=== PATIENT | female | born 1990 | race Caucasian/White ===

== ENCOUNTER 2019-12-28 14:46 | Emergency (ER) | payer OTHER, SELFPAY ==
--- NOTE | ~2019-12-28 | XR_ITS ---
EXAMINATION: XR foot RT min 3V EXAM DATE: 12/28/2019 15:22 INDICATION: Initial encounter following injury, with pain of the right second and third toes. TECHNIQUE: Right foot dorsoplantar, lateral and oblique projections obtained and reviewed. There is no prior study for comparison. FINDINGS: Right metatarsal bones unremarkable. There are no acute fractures or dislocations identifi ed. There is no subcutaneous gas. The soft tissue is unremarkable. There are no radiopaque foreig n bodies. IMPRESSION: No acute osseous findings. Reviewed, dictated and finalized at location A. SOFTWARE ARCHITECT IMPRESSION: No acute osseous findings.
--- NOTE | 2019-12-28 14:48 | ED.GENADULT ---
HPI - General Adult General Chief complaint: Extremity Injury, Lower Stated complaint: Toe Pain Time Seen by Provider: 12/28/19 15:05 Source: patient Mode of arrival: ambulatory Limitations: no limitations History of Present Illness HPI narrative: 29-year-old female patient presents to the [facility] with complaints of toe pain. Patient states that she was standing on top of her 4 saldana today trying to get something off of the top shelf in her garage and she fell off a 4 [place]dana. Patient states she got her second and third toe caught on 1 of the pedals on the 4 saldana. Patient states since then she has been having pain. Patient states she did take some ibuprofen for pain prior to arrival. Patient states she does not have any pain to the foot. Patient denies any pain to the great toe just the second and third toe on the right foot. Patient states she has been able to walk on it. Related Data Home Medications Medication Instructions Recorded Confirmed albuterol sulfate 2 puff INHALATION Q4-6H PRN 12/28/19 12/28/19 Allergies Allergy/AdvReac Type Severity Reaction Status Date / Time bee venom protein (honey bee) Allergy Anaphylactic Verified 12/28/19 15:06 [bees] Shock topiramate [From Topamax] Allergy Numbness Verified 12/28/19 15:05 Review of Systems Review of Systems: Narrative: CONSTITUTIONAL: Denies fever, chills, or sweats. EYES: Denies visual changes, redness, or discharge. ENT: Denies rhinorrhea, congestion, sore throat, or otalgia. CARDIOVASCULAR: Denies chest pain, palpitations, or edema. RESPIRATORY: Denies cough or dyspnea. GASTROINTESTINAL: Denies abdominal pain, nausea, vomiting, or diarrhea. GENITOURINARY: Denies dysuria or hematuria. SKIN: Denies rash or itching. MUSCULOSKELETAL: Denies back pain, joint pain, or myalgia. Positive pain to second and third toe on right foot NEUROLOGIC: Denies headache, numbness, or weakness. PSYCHIATRIC: Denies anxiety or depression. [facility] Social History Social History Gender identity (if verbalized by the patient): Female Comments At the time of my signature I agree with nursing past medical history, surgical, social, and family history. There is no relevant family history pertinent to the presenting complaint. Exam Narrative: Exam Narrative: GENERAL: Well-appearing, well-nourished, and in no acute distress. HEAD: Normocephalic, atraumatic. EYES: PERRLA and EOMI. ENT: Nares clear, no rhinorrhea or epistaxis. Mucous membranes moist. NECK: Supple. No lymphadenopathy CHEST: Clear to auscultation. No respiratory distress. HEART: Regular rate and rhythm. No murmur heard. Normal peripheral pulses. ABDOMEN: Soft, nontender, nondistended, normal active bowel sounds. EXTREMITIES: Patient able to bear weight and ambulate with increase in pain to second and third toe on right foot. No surface trauma, ecchymosis, erythema, lesions, ulcers or break in skin integrity. The R foot is without obvious asymmetry or deformity when compared to the L foot. No bony step-off, tender to palpation over the second and third toe on the right foot, no midfoot or hindfoot or sole. Normal plantar/dorsiflexion, inversion/eversion. Distal motor and neurovascular status are intact SKIN: Warm, dry, no rash. NEURO: No focal deficits. Alert and oriented x3. Course Reevaluation(s) Reevaluation #1: Notify patient that there is no acute fracture noted to the toes at this time. Discussed with her that this is most likely a contusion from when she fell today. Discussed with patient she can continue taking Tylenol and ibuprofen for pain, elevating it and icing it to help with the swelling. Discussed with patient that this should get better with time. Patient verbalized understanding denies any other questions or concerns. Date: 12/28/19 Time: 15:44 Vital Signs Vital signs: Vital Signs Temperature 37.7 C H 12/28/19 15:01 Pulse Rate 92 03
[2019-12-28 15:01] VITALS: BP 105/63; PULSE 92; RESP 16; TEMP 37.7; O2SAT 100
== END 2019-12-28 15:47 | disposition home or self-care (01) ==
PROVIDERS: Emergency Provider Nurse Practitioner Family
DX: S90.121A Contusion of right lesser toe(s) without damage to nail, initial encounter (principal); W17.89XA Other fall from one level to another, initial encounter
CPT/HCPCS: 73630; 99213; G0463

== ENCOUNTER 2020-07-15 01:02 | Outpatient (CLI) | payer OTHER, SELFPAY ==
[2020-07-15 18:37] LABS: SARS-CoV-2 RNA PCR Negative
== END 2020-07-15 01:03 | disposition home or self-care (01) ==
LOC: ANHCOVIDDT 01:02
PROVIDERS: PCP Physician Assistant; Visit Provider Otolaryngology
DX: Z01.818 Encounter for other preprocedural examination (principal); Z20.828 Contact with and (suspected) exposure to other viral communicable diseases
CPT/HCPCS: 87635; C9803; U0003

== ENCOUNTER 2020-07-18 01:15 | Day surgery (SDC) | payer OTHER, SELFPAY ==
[2020-07-06 12:02] VITALS: BMI 22.5
--- NOTE | 2020-07-13 06:31 | P.HP_ITS ---
History of Present Illness History of Present Illness Consent: Risks, benefits, and alternatives have been discussed and questions answered. Patient agrees to proceed with procedure. Chief complaint: Chronic otitis media Narrative: Kim Singh Parent is a 29 year old female with multiple ear operations in the past bilateral chronic otitis media she is admitted now for left exploratory tympanotomy Review of Systems Review of Systems: All systems reviewed & are unremarkable except as noted in HPI and below [facility] Social History Social History Smoking packs per day: 0.5 Smoking cigarettes per day: 10.0 Years smoked: 13 Smoking pack-years: 6.50 Smoking status: Current every day smoker Tobacco type: cigarettes Alcohol intake: current Drinks per week: 2 Substance use: former Substance use type: marijuana Last use: 10 YEARS AGO Gender identity (if verbalized by the patient): Female Spiritual care concerns: No Meds Home Medications and Allergies Home Medications Medication Instructions Recorded Confirmed Type meclizine 25 mg tablet 25 mg PO TID #30 tablet 04/18/20 07/06/20 Rx Truvy 2 tablet PO TID 07/06/20 History loratadine 10 mg PO DAILY 07/06/20 07/06/20 History Allergies Allergy/AdvReac Type Severity Reaction Status Date / Time bee venom protein (honey bee) Allergy Anaphylactic Verified 07/06/20 12:03 [bees] Shock topiramate [From Topamax] Allergy Numbness Verified 07/06/20 12:03 Assessment and Plan Additional Plan Admitted for an exploratory tympanotomy left and cleaning out of the mastoid
[2020-07-18] VITALS (7 sets, daily range): BP systolic 94–116; BP diastolic 58–76; PULSE 57–87; RESP 9–16; TEMP 36.2–36.8; O2SAT 96–100
--- NOTE | 2020-07-18 06:14 | WPDHPUPDATE1 ---
History and Physical Update Update Date/Time: 07/18/20 06:14 History and Physical has been reviewed, including an updated exam of the patient. There are NO changes in the patient's condition. Risks, benefits, and alternatives have been discussed and questions answered. Patient agrees to proceed with procedure.
[2020-07-18] MEDS: ACETAMINOPHEN 500 MG TABLET 1000 MG PO (08:19)
[2020-07-18] MEDS: LACTATED RINGERS 1,000 ML 30 ML IV CONT (08:32)
--- NOTE | 2020-07-18 08:36 | WPDANESEPPF ---
Anes - Initial Pre Proc Eval Procedure: Operation Date: 07/18/20 09:30 Proposed Procedures p Left Exploratory Tympanotomy - Travis Power MD Date/Time: 07/18/20 08:36 Surgeon: Travis Power MD Pre Op Diagnosis: Chronic otitis media Patient Data Age: 29 Gender: F Height: 5 ft 7 in Weight: 66.3 kg Last Vital Signs Temp 36.8 C 07/18/20 08:11 Pulse 87 07/18/20 08:11 Resp 16 07/18/20 08:11 BP 116/76 07/18/20 08:11 Pulse Ox 96 07/18/20 08:11 Allergies Allergy/AdvReac Type Severity Reaction Status Date / Time bee venom protein (honey bee) Allergy Anaphylactic Verified 07/18/20 08:01 [bees] Shock topiramate [From Topamax] Allergy Numbness Verified 07/18/20 08:01 Home Medications Medication Instructions Recorded Confirmed Type meclizine 25 mg tablet 25 mg PO TID #30 tablet 04/18/20 07/18/20 Rx Truvy 2 tablet PO TID 07/06/20 History loratadine 10 mg PO DAILY 07/06/20 07/18/20 History Patient hx anesthesia problems: none Family hx anesthesia problems: none PMFSH Past Medical History Medical History Anxiety Tobacco abuse Social History Social History Smoking packs per day: 0.5 Smoking cigarettes per day: 10.0 Years smoked: 13 Smoking pack-years: 6.50 Smoking status: Current every day smoker Tobacco type: cigarettes Alcohol intake: current Drinks per week: 2 Substance use: former Substance use type: marijuana Last use: 10 YEARS AGO Gender identity (if verbalized by the patient): Female Spiritual care concerns: No Anes - Eval Final PreProcedure Day of Procedure 07/18/20 08:36 Patient weight: normal Heart: regular rate and rhythm Lungs: clear to auscultation Airway: Mallampati scale class II and special considerations (right incisor veneer) Neurological: alert and oriented Last oral intake: >/= 8 hours ASA classification: II Emergent: no Anesthetic plan: proceed Anesthesia type and monitoring: general LMA and standard monitoring Informed Consent: The patient's anesthetic plan and its attendant risks and benefits were discussed with the patient/family/POA. Questions were solicited and answers provided to the satisfaction of the patient/family/POA.
[2020-07-18] MEDS: NEOMYCIN/POLYMYXIN/BACITRACIN OINTMENT 15 GM TUBE 1 APPLIC TOPICAL (09:25)
[2020-07-18] MEDS: CIPROFLOXACIN HCL 0.3% OP SOLN 2.5 ML BTL 4 DROP LEFT EAR (09:25)
--- NOTE | 2020-07-18 09:38 | PM.PROC ---
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
[2020-07-18] MEDS: fentaNYL CITRATE INJ (*CRX) 100 MCG/2 ML VIAL 25 MCG IV PUSH ×2 (09:55→10:05)
[2020-07-18] MEDS: oxyCODONE HCL (*CRX) 5 MG TAB IR PO (10:50)
== END 2020-07-18 11:31 | disposition home or self-care (01) ==
PROVIDERS: PCP Physician Assistant; Visit Provider Otolaryngology
PROC: (CPT 69436; principal; 2020-07-18 09:30)
DX: H66.93 Otitis media, unspecified, bilateral (principal); H71.12 Cholesteatoma of tympanum, left ear; H71.22 Cholesteatoma of mastoid, left ear; F17.210 Nicotine dependence, cigarettes, uncomplicated
CPT/HCPCS: 69436; A9270; J0171; J1100; J2250; J2405; J2704; J3010; J7120

== ENCOUNTER 2021-01-14 08:45 | Emergency (ER) | payer OTHER, SELFPAY ==
--- NOTE | 2021-01-14 08:58 | ED.URI ---
HPI - URI/Sore Throat General Chief Complaint: Upper Respiratory Infection Stated Complaint: Congestion,cough Time Seen by Provider: 01/14/21 08:58 Source: patient and RN notes reviewed Mode of arrival: ambulatory Limitations: no limitations History of Present Illness HPI Narrative: 30-year-old female presents to the [facility] with complaints of sinus pain, pressure, bilateral ear pain. Patient has a history of ear surgery and frequent ear infections and ear canal infections. Hoarse voice with a cough. Denies fevers, chest pain, abdominal pain. No nausea vomiting or diarrhea. Related Data Home Medications Medication Instructions Recorded Confirmed albuterol sulfate 2 inh INHALATION DAILY 01/14/21 01/14/21 levonorgestrel [Mirena] 1 device INTRAUTERINE ONCE 01/14/21 01/14/21 Allergies Allergy/AdvReac Type Severity Reaction Status Date / Time fluticasone Allergy Unknown RASH Verified 01/14/21 08:50 topiramate Allergy Unknown numbness Verified 01/14/21 08:50 of face and hands Bumble Bee Allergy Mild SHOCK Uncoded 01/14/21 08:50 Review of Systems Review of Systems: Narrative: CONSTITUTIONAL: Denies fever, chills, or sweats. EYES: Denies visual changes, redness, or discharge. ENT: Reports rhinorrhea, congestion, sore throat, or otalgia. CARDIOVASCULAR: Denies chest pain, palpitations, or edema. RESPIRATORY: Reports cough without dyspnea. GASTROINTESTINAL: Denies abdominal pain, nausea, vomiting, or diarrhea. SKIN: Denies rash or itching. MUSCULOSKELETAL: Denies back pain, joint pain, or myalgia. NEUROLOGIC: Denies headache, numbness, or weakness. PSYCHIATRIC: Denies anxiety or depression. All other systems reviewed are negative, except as documented in HPI. PMFSH Surgical History Surgical History (Updated 01/14/21 @ 16:06 by Sheila Lowe) History of tympanoplasty Comments History of ear infections and ear surgery. At the time of my signature, I reviewed and agree with the nursing past medical, surgical, social, and family history. There is no relevant family history pertinent to the patient complaint. Exam Narrative: Exam Narrative: GENERAL: This is a well-nourished, well-developed patient, in no apparent distress. HEAD: normocephalic, atraumatic. EYES: PERRL. Sclera clear/white. Vision is grossly intact. EARS: External ears normal. auditory canals with cerumen bilaterally, worse on the left than the right. TMs normal without perforation. Hearing grossly intact. NOSE: External nose normal with with nasal discharge, nares with redness. THROAT: Mucous membranes moist, posterior pharynx clear. NECK: Neck supple, non-tender without lymphadenopathy, masses or thyromegaly. CARDIOVASCULAR: Regular rate and rhythm without murmurs, gallops, or rubs. RESPIRATORY: Clear to auscultation. Breath sounds equal bilaterally. No wheezes, rales, or rhonchi. SKIN: warm, intact with no suspicious lesions or rash, good texture and turgor. NEURO: awake, alert, and oriented to person, place and time. There were no obvious focal neurologic abnormalities. EXTREMITIES: No joint tenderness, effusion, or edema noted. BACK: Nontender without deformity. Course Vital Signs Vital signs: Vital Signs Temperature 97.1 F L 01/14/21 09:01 Pulse Rate 87 01/14/21 09:01 Respiratory Rate 16 01/14/21 09:01 Blood Pressure 108/76 01/14/21 09:01 Pulse Oximetry 100 01/14/21 09:01 Temperature 97.1 F L 01/14/21 09:01 Pulse Rate 87 01/14/21 09:01 Respiratory Rate 16 01/14/21 09:01 Blood Pressure 108/76 01/14/21 09:01 Pulse Oximetry 100 01/14/21 09:01 Reviewed, within normal limits Procedures Ear Wax Removal Both Ears: Ear Wax Removal Date: 01/14/21 Ear Wax Removal Time: 09:15 Results: Re-examined: some cerumen remains TM Examination: TM(s) intact, normal appearance Ear Canal Exam: atraumatic Patient Tolerated Procedure: well Complications: no problems
[2021-01-14 09:01] VITALS: BP 108/76; PULSE 87; RESP 16; TEMP 36.2; O2SAT 100
== END 2021-01-14 09:36 | disposition home or self-care (01) ==
PROVIDERS: Emergency Provider Nurse Practitioner
DX: H60.502 Unspecified acute noninfective otitis externa, left ear (principal); J01.40 Acute pansinusitis, unspecified; H61.23 Impacted cerumen, bilateral; Z20.822 Contact with and (suspected) exposure to COVID-19
CPT/HCPCS: 69210; 87426; 99213; C9803; G0463

== ENCOUNTER 2021-06-06 09:48 | Emergency (ER) | payer OTHER, SELFPAY ==
[2021-06-06 09:59] VITALS: BP 124/89; PULSE 100; RESP 16; TEMP 37.1; O2SAT 99
--- NOTE | 2021-06-06 10:23 | ED.URI ---
HPI - URI/Sore Throat General Chief Complaint: Upper Respiratory Infection Stated Complaint: headache/sob/cough Time Seen by Provider: 06/06/21 10:10 Source: patient and RN notes reviewed Mode of arrival: ambulatory Limitations: no limitations History of Present Illness HPI Narrative: 30-year-old female with history of asthma presents with concern for headache, sore throat, fatigue, ear pain. Reports occasional shortness of breath that she believes is related to her asthma. She denies any current shortness of breath. She has not taken any [id number] remedies. She reports her is sick with similar symptoms. Reports she was vaccinated for Covid in January. MD elicited complaint: nasal congestion Related Data Home Medications Medication Instructions Recorded Confirmed albuterol sulfate 90 mcg INHALATION PRN PRN 06/06/21 06/06/21 Allergies Allergy/AdvReac Type Severity Reaction Status Date / Time bee venom protein (honey bee) Allergy Anaphylactic Verified 06/06/21 10:13 [bees] Shock topiramate [From Topamax] Allergy Numbness Verified 06/06/21 10:13 Review of Systems Review of Systems: CONSTITUTIONAL: Denies malaise, chills, sweats, or fever. EYES: Denies visual changes, redness, or discharge. ENT: Reports rhinorrhea, congestion, otalgia and sore throat. CARDIOVASCULAR: Denies chest pain, palpitations, or edema. RESPIRATORY: Reports cough. Denies current dyspnea. GASTROINTESTINAL: Denies abdominal pain, nausea, vomiting, diarrhea SKIN: Denies rash or itching. MUSCULOSKELETAL: Denies myalgia. NEUROLOGIC: Reports headache. All systems reviewed & are unremarkable except as noted in HPI and below PMFSH Past Medical History Medical History (Updated 06/06/21 @ 10:28 by Sheila Brooks NP) Anxiety Tobacco abuse Social History Social History Smoking packs per day: 0.5 Smoking cigarettes per day: 10.0 Years smoked: 13 Smoking pack-years: 6.50 Smoking status: Current every day smoker Tobacco type: cigarettes Alcohol intake: current Drinks per week: 2 Substance use: former Substance use type: marijuana Last use: 10 YEARS AGO Gender identity (if verbalized by the patient): Female Spiritual care concerns: No Comments At time of signature, agree with nursing past medical, surgical, social and family history. There is no relevant family history pertinent to the presenting complaint Exam Narrative: GENERAL: Well-appearing, well-nourished, and in no acute distress. HEAD: Normocephalic EYES: PERRLA, conjunctivae clear ENT: Nares clear, clear discharge. Mucous membranes moist. TM pearly fajardo with sharp light reflex bilaterally; no tragal tenderness. Oropharynx erythematous without lesions. Tonsils enlarged and without exudate, no drooling, no hoarseness, no trismus, uvula midline. NECK: Supple. No lymphadenopathy CHEST: Clear to auscultation, breath sounds equal. No wheezing, rhonchi, rales, or stridor. No respiratory distress, speaks in full sentences. HEART: Regular rate and rhythm. No murmur heard. SKIN: Warm, dry, no rash. NEURO: Alert and oriented x3. PSYCH: Normal mood and affect Course Course Emergency Course: Patient is aware of diagnosis, understands and agrees to treatment plan. Anticipatory guidance given. Patient agrees to follow-up as directed and is aware of reasons to seek care at the emergency department. Portions of this record may have been created with voice recognition software Vital Signs Vital signs: Vital Signs Temperature 98.7 F 06/06/21 09:59 Pulse Rate 100 06/06/21 09:59 Respiratory Rate 16 06/06/21 09:59 Blood Pressure 124/89 06/06/21 09:59 Pulse Oximetry 99 06/06/21 09:59 Temperature 98.7 F 06/06/21 09:59 Pulse Rate 100 06/06/21 09:59 Respiratory Rate 16 06/06/21 09:59 Blood Pressure 124/89 06/06/21 09:59 Pulse Oximetry 99 06/06/21 09:59 Reviewed.
== END 2021-06-06 10:40 | disposition home or self-care (01) ==
PROVIDERS: Emergency Provider Nurse Practitioner; PCP Physician Assistant
DX: U07.1 COVID-19 (principal); F17.210 Nicotine dependence, cigarettes, uncomplicated
CPT/HCPCS: 87426; 99213; C9803; G0463

== ENCOUNTER 2021-07-09 10:18 | Outpatient (CLI) | payer OTHER, SELFPAY | END 2021-07-09 10:19 | disposition home or self-care (01) | LOC: ANHAUDASC 10:19 | PROVIDERS: PCP Physician Assistant; Visit Provider Otolaryngology | DX: H66.93 Otitis media, unspecified, bilateral (principal) | CPT/HCPCS: 92557; 92567 ==

== ENCOUNTER 2021-07-26 08:03 | Outpatient (RCR) | payer OTHER, SELFPAY | END 2021-10-24 23:59 | disposition home or self-care (01) | LOC: ANHAUDASC 08:03 | PROVIDERS: PCP Physician Assistant; Visit Provider Otolaryngology | DX: Z46.1 Encounter for fitting and adjustment of hearing aid (principal) | CPT/HCPCS: V5160; V5261; V5264 ==

== ENCOUNTER 2021-10-31 14:02 | Emergency (ER) | payer OTHER, SELFPAY ==
--- NOTE | ~2021-10-31 | XR_ITS ---
EXAMINATION: [id number]_[id number] EXAM DATE: 10/31/2021 20:45 INDICATION: Initial encounter following injury, with pain of the neck. TECHNIQUE: Cervical spine frontal, lateral, lateral swimmers, and open-mouth odontoid projections. There is no prior study for comparison. FINDINGS: There is moderate reversal of the normal cervical lordosis which may be positional or spasm . Mild disc disease at C4-5. Mild cervical arthropathy. The odontoid process is intact. The lateral masses of C1 line up with C2. There are no acute fractures or dislocations identified. The vertebr al bodies are aligned in the AP dimension. IMPRESSION: Reversal of normal cervical lordosis could indicate spasm. No fracture. Reviewed, dictated and finalized at location A. CLING CENTER OPERATOR IMPRESSION: Reversal of normal cervical lordosis could indicate spasm. No fract ure.
--- NOTE | ~2021-10-31 | XR_ITS ---
EXAMINATION: XR elbow RT min 3V EXAM DATE: 10/31/2021 20:45 INDICATION: Fall,Rt Medial Elbow Pain initial encounter. TECHNIQUE: Right elbow frontal, lateral with flexion, and oblique projections obtained and reviewed. There is no prior study for comparison. FINDINGS: Right elbow anterior humeral line intact. There are no acute fractures or dislocations roxana ntified. There is no subcutaneous gas. The soft tissue is unremarkable. There are no radiopaque f oreign bodies. IMPRESSION: 1. XR elbow RT min 3V exam without acute osseous findings. Reviewed, dictated and finalized at location A. STED LIVING DIRECTOR
--- NOTE | ~2021-10-31 | XR_ITS ---
EXAMINATION: XR lumbar spine 2-3V EXAM DATE: 10/31/2021 20:45 INDICATION: Fall,Rt Sided Lumbar Pain To Tailbone . Initial encounter. TECHNIQUE: Lumber spine frontal, lateral, lateral L5-S1 projections for interpretation. There is no prior study for comparison. FINDINGS: The vertebral bodies are aligned in the AP dimension. Neck maintained There are no acute fractures identified. Mild lumbar facet arthropathy. Sacrum, sacroiliac joints, sacral arcuate lines are intact. There is IUD projecting over the central aspect of the pelvis. IMPRESSION: Mild lumbar facet arthropathy. Reviewed, dictated and finalized at location A. ATION THERAPIST
[2021-10-31 14:09] VITALS: BP 116/74; PULSE 92; RESP 16; TEMP 36.4; O2SAT 100
[2021-10-31 19:19] VITALS: BP 110/73; PULSE 73; TEMP 36.7; O2SAT 100
--- NOTE | 2021-10-31 19:32 | PC.NURSE ---
Call to waiting room, no answer.
--- NOTE | 2021-10-31 19:53 | PC.NURSE ---
Call to patient in waiting room, no answer. Assume pt left after triage, prior to seeing provider.
--- NOTE | 2021-10-31 19:58 | PC.NURSE ---
Per sheet rock finisher, pt did not hear her name called. Pt to ED Rm 17 ambulatory.
--- NOTE | 2021-10-31 21:09 | ED.FALL ---
HPI - Fall General Chief Complaint: Fall Stated Complaint: FALL DOWN STEPS, ARM BACK PAIN Time Seen by Provider: 10/31/21 20:12 Source: patient Mode of arrival: ambulatory Limitations: no limitations History of Present Illness HPI Narrative: 31-year-old with no major medical problems here with complaints of neck, low back pain and right elbow pain. Patient [place] which were slippery from ice, she denies any loss of consciousness. She denies any other injuries. Related Data Home Medications Medication Instructions Recorded Confirmed levonorgestrel [Mirena] 1 device INTRAUTERINE ONCE 01/14/21 10/29/21 albuterol sulfate 90 mcg INHALATION PRN PRN 06/06/21 10/29/21 Allergies Allergy/AdvReac Type Severity Reaction Status Date / Time fluticasone Allergy Unknown RASH Verified 10/31/21 20:02 bee venom protein (honey bee) Allergy Anaphylactic Verified 10/31/21 20:02 [bees] Shock topiramate [From Topamax] Allergy Numbness Verified 10/31/21 20:02 Bumble Bee Allergy Mild SHOCK Uncoded 10/31/21 20:02 Review of Systems Review of Systems: All systems reviewed & are unremarkable except as noted in HPI and below Constitutional: Constitutional: Reports no additional constitutional complaints Eyes: Eyes: Reports no additional eye complaints ENT: Reports system reviewed and no additional complaints, except as documented Cardiovascular: Cardiovascular: Reports no additional cardiovascular complaints Respiratory: Respiratory: Reports no additional respiratory complaints Gastrointestinal: Gastrointestinal: Reports no additional gastrointestinal complaints Musculoskeletal: Musculoskeletal: Reports as per HPI Integumentary/Breasts: Skin/Breast: Reports system reviewed and no additional complaints, except as docu Neurologic: Reports system reviewed and no additional complaints, except as documented Psychiatric: Psychiatric: Reports no additional psychiatric complaints Endocrine: Endocrine: Reports no additional endocrine complaints [facility] Past Medical History Medical History (Updated 10/31/21 @ 21:14 by Iraj Harley MD) Anxiety Tobacco abuse Surgical History Surgical History History of tympanoplasty Social History Social History Smoking packs per day: 0.5 Smoking cigarettes per day: 10.0 Years smoked: 13 Smoking pack-years: 6.50 Smoking status: Current every day smoker Tobacco type: cigarettes Alcohol intake: current Drinks per week: 2 Substance use: former Substance use type: marijuana Last use: 10 YEARS AGO Gender identity (if verbalized by the patient): Female Spiritual care concerns: No Exam Narrative: GENERAL: Well-appearing, well-nourished, and in no acute distress. HEAD: Normocephalic, atraumatic. EYES: PERRLA and EOMI. ENT: Nares clear, no rhinorrhea or epistaxis. Mucous membranes moist. NECK: Supple. No C-spine tenderness CHEST: Clear to auscultation. No respiratory distress. HEART: Regular rate and rhythm. No murmur heard. Normal peripheral pulses. EXTREMITIES: Normal range of motion. No edema. Right elbow no deformity painful range of motion Examination of her back no vertebral point tenderness. SKIN: Warm, dry, no rash. NEURO: No focal deficits. Alert and oriented x3. PSYCH: Normal mood and affect. Course Course Emergency Course: Inform patient about her x-ray findings. Advised her to take pain medication as prescribed. Vital Signs Vital signs: Vital Signs Temperature 36.4 C L 10/31/21 14:09 Pulse Rate 92 10/31/21 14:09 Respiratory Rate 16 10/31/21 14:09 Blood Pressure 116/74 10/31/21 14:09 Pulse Oximetry 100 10/31/21 14:09 Temperature 36.7 C 10/31/21 19:19 Pulse Rate 73 10/31/21 19:19 Respiratory Rate 16 10/31/21 14:09 Blood Pressure 110/73 10/31/21 19:19 Pulse Oximetry 100
[2021-10-31] MEDS: NAPROXEN 500 MG TABLET (21:30)
== END 2021-10-31 21:31 | disposition home or self-care (01) ==
PROVIDERS: Emergency Provider Family Medicine; PCP Physician Assistant
DX: M54.50 Low back pain, unspecified (principal); S16.1XXA Strain of muscle, fascia and tendon at neck level, initial encounter; F17.210 Nicotine dependence, cigarettes, uncomplicated; W10.9XXA Fall (on) (from) unspecified stairs and steps, initial encounter
CPT/HCPCS: 72040; 72100; 73080; 99284; A9270

== ENCOUNTER 2022-01-03 11:09 | Outpatient (RCR) | payer OTHER, SELFPAY | END 2022-04-03 23:59 | disposition home or self-care (01) | LOC: ANHAUDASC 11:09 | PROVIDERS: PCP Physician Assistant; Visit Provider Physician Assistant | DX: Z46.1 Encounter for fitting and adjustment of hearing aid (principal) | CPT/HCPCS: 99199 ==

== ENCOUNTER 2022-05-18 14:38 | Emergency (ER) | payer OTHER, SELFPAY ==
--- NOTE | 2022-05-18 14:42 | ED.SKABFB ---
HPI - Skin/Abscess/Foreign Bdy General Chief complaint: Skin/Abscess/Foreign Body Stated complaint: Insect Bite Time Seen by Provider: 05/18/22 14:42 Source: patient Mode of arrival: ambulatory Limitations: no limitations History of Present Illness HPI narrative: Ms. Coleman is a 31-year-old female patient presenting to the clinic today with complaints of an insect bite/sting to her left abdominal wall. She reports she was stung last night and has swelling and redness to the affected area. States that the area is itchy and also mildly tender to touch with some stinging. She denies any tongue swelling, shortness of breath, or drooling or difficulty swallowing Related Data Home Medications Medication Instructions Recorded Confirmed levonorgestrel 20 mcg/24 hours (7 1 device intrauterine ONCE 01/14/21 12/31/21 yrs) 52 mg intrauterine device (Mirena) albuterol sulfate 90 mcg/actuation 90 mcg inhalation PRN PRN 06/06/21 12/31/21 aerosol inhaler Shortness Of Breath Or Wheezing Allergies Allergy/AdvReac Type Severity Reaction Status Date / Time fluticasone Allergy Unknown RASH Verified 05/18/22 14:43 bee venom protein (honey bee) Allergy Anaphylactic Verified 05/18/22 14:43 [bees] Shock topiramate [From Topamax] Allergy Numbness Verified 05/18/22 14:43 Bumble Bee Allergy Mild SHOCK Uncoded 05/18/22 14:43 Review of Systems Review of Systems: Pertinent positives per HPI. Patient denies any fever, chills, rash, headache, visual changes, dizziness, cough, runny nose, sore throat, shortness of breath, chest pain, palpitations, nausea, vomiting, diarrhea, constipation, abdominal pain, or any urinary issues. [facility] Past Medical History Medical History Anxiety Tobacco abuse Surgical History Surgical History History of tympanoplasty Social History Social History Smoking packs per day: 0.5 Smoking cigarettes per day: 10.0 Years smoked: 13 Smoking pack-years: 6.50 Smoking status: Current some day smoker Tobacco type: cigarettes Alcohol intake: current Drinks per week: 2 Substance use: former Substance use type: marijuana Last use: 10 YEARS AGO Gender identity (if verbalized by the patient): Female Spiritual care concerns: No Comments At the time of my signature, I reviewed and agree with the nursing past medical, surgical, social, and family history. There is no relevant family history pertinent to the patient complaint. Exam Narrative: General: Well-developed, well nourished, in no apparent distress Head: Normocephalic, atraumatic. Cardio: Regular rate and rhythm, s1 and s2 normal, no murmur appreciated. Resp: Clear to auscultation bilaterally, no rhonchi, rales, wheezing or rubs. Integumentary: [place], warm, and dry, intact without lesion, has a insect sting to the left abdominal wall with palm-sized redness with mild induration. Tender to palpation. Course Course Emergency Course: Portions of this record may have been created with voice recognition software. Level of Care: Express Care Visit Vital Signs Vital signs: Vital signs reviewed MDM - Skin/Abscess/Foreign Bdy MDM Narrative Medical decision making narrative: At the time of visit patient is resting comfortably on the exam table. She reports that she has had anaphylactic reactions from bumblebee stings in the past. States that she thinks that this was some type of a wasp. The area is warm to touch and tender and itchy. I will give her a prescription for some oral prednisone as well as a prescription for some doxycycline to cover a secondary infection. Supportive measures were discussed with the patient she voiced understanding of discharge instructions Differential Diagnosis Differential diagnosis: Likely abscess of skin or subcu
[2022-05-18 14:46] VITALS: BP 119/76; PULSE 82; RESP 16; TEMP 36.3; O2SAT 100
== END 2022-05-18 14:57 | disposition home or self-care (01) ==
PROVIDERS: Emergency Provider Nurse Practitioner Family
DX: T63.481A Toxic effect of venom of other arthropod, accidental (unintentional), initial encounter (principal); F17.210 Nicotine dependence, cigarettes, uncomplicated
CPT/HCPCS: 99213; G0463

== ENCOUNTER 2022-07-08 11:46 | Outpatient (CLI) | payer OTHER, SELFPAY ==
--- NOTE | ~2022-07-08 | MMUS_ITS ---
EXAMINATION: MM diagnostic elvi BI w scottie, US breast BI complete HISTORY: Right breast lump TECHNIQUE: ML, MLO and CC 3-D tomosynthesis images of both breasts were performed and synthetic 2-D i mages were generated. CAD analysis was submitted and interpreted. High resolution bilateral complete breast ultrasound including all 4 quadrants and subareolar areas was performed. COMPARISON: None BREAST PARENCHYMAL COMPOSITION: The breasts are extremely dense, which lowers the sensitivity of mamm ography. FINDINGS: MAMMOGRAPHIC FINDINGS: No suspicious mass, architectural distortion, malignant calcification, skin thickening or retraction of either breast is evident. There is suggestion of a 10 mm circumscribed opacity subjacent to a marker where the patient complain s of the left breast lump, at the lower outer right breast. Additional similar masses may be present in each breast, partially obscured by the dense fibroglandular stroma. Bilateral complete breast ultr asound examination was therefore performed. Occasional bilateral punctate benign-appearing microcalcifications are noted. ULTRASOUND: Multiple bilateral breast cysts are noted, measuring up to 13.5 mm on the right, 12 mm on the left. No suspicious solid lesion or shadowing of either breast is detected. IMPRESSION: 1. Multiple bilateral breast cysts; no mammographic evidence of malignancy 2. Routine mammographic screening is recommended BI-RADS Category 2: Benign finding(s). Reviewed, dictated and finalized at location A. IMPRESSION: 1. Multiple bilateral breast cysts; no mammographic evidence of malignancy 2. Routine mammographic screening is recommended BI-RADS Category 2: Benign finding(s).
== END 2022-07-08 11:47 | disposition home or self-care (01) ==
DX: N60.11 Diffuse cystic mastopathy of right breast (principal); N60.12 Diffuse cystic mastopathy of left breast
CPT/HCPCS: 76641; 77062; 77066; 92557; 92567; G0279

== ENCOUNTER 2022-07-08 14:40 | Outpatient (CLI) | payer OTHER, SELFPAY | END 2022-07-08 14:41 | disposition home or self-care (01) | LOC: ANHAUDASC 14:41 | PROVIDERS: Visit Provider Otolaryngology | DX: H90.6 Mixed conductive and sensorineural hearing loss, bilateral (principal) | CPT/HCPCS: 92557; 92567 ==

== ENCOUNTER 2022-12-14 08:39 | Emergency (ER) | payer OTHER, SELFPAY ==
[2022-12-14 08:53] VITALS: BP 98/64; PULSE 84; RESP 14; TEMP 37.2; O2SAT 100
--- NOTE | 2022-12-14 09:17 | ED.GENADULT ---
HPI - General Adult General Chief complaint: Upper Respiratory Infection Stated complaint: Sore Throat/Sinus Time Seen by Provider: 12/14/22 09:17 Source: patient, RN notes reviewed and old records reviewed Mode of arrival: ambulatory Limitations: no limitations History of Present Illness HPI narrative: 32-year-old female presents to the [facility] with complaints of ear pain, sore throat, sinus congestion. Has a history of chronic ear infections, wears hearing aids [place] feverish last night, did not take her temperature. Patient reports that she is taking ?everything for her symptoms. Onset (ago): day(s) (4) Related Data Home Medications Medication Instructions Recorded Confirmed levonorgestrel 21 mcg/24 hours (8 1 device intrauterine ONCE 01/14/21 12/14/22 yrs) 52 mg intrauterine device (Mirena) Allergies Allergy/AdvReac Type Severity Reaction Status Date / Time fluticasone Allergy Unknown RASH Verified 12/14/22 09:02 bee venom protein (honey bee) Allergy Anaphylactic Verified 12/14/22 09:02 [bees] Shock topiramate [From Topamax] Allergy Numbness Verified 12/14/22 09:02 Bumble Bee Allergy Mild SHOCK Uncoded 12/14/22 09:02 Review of Systems Review of Systems: All systems reviewed & are unremarkable except as noted in HPI and below Constitutional: Constitutional: Reports no additional constitutional complaints Eyes: Eyes: Reports no additional eye complaints ENT: Reports as per HPI, Reports otalgia, Reports nasal congestion and Reports sore throat Cardiovascular: Cardiovascular: Reports no additional cardiovascular complaints, Denies chest pain and Denies dyspnea Respiratory: Respiratory: Reports no additional respiratory complaints, Denies chest congestion, Denies cough and Denies dyspnea Gastrointestinal: Gastrointestinal: Reports no additional gastrointestinal complaints, Denies abdominal pain, Denies nausea and Denies vomiting Musculoskeletal: Musculoskeletal: Reports no additional musculoskeletal complaints Integumentary/Breasts: Skin/Breast: Reports system reviewed and no additional complaints, except as docu Neurologic: Reports system reviewed and no additional complaints, except as documented Psychiatric: Psychiatric: Reports no additional psychiatric complaints Allergic/Immunologic: Allergic/Immunologic: Reports no additional allergic/immunologic complaints PMFSH Past Medical History Medical History (Updated 12/14/22 @ 09:41 by Sheila Lowe APRN) Anxiety Hearing aid worn Tobacco abuse Surgical History Surgical History History of tympanoplasty Social History Social History Smoking packs per day: 0.5 Smoking cigarettes per day: 10.0 Years smoked: 13 Smoking pack-years: 6.50 Smoking status: Current some day smoker Tobacco type: cigarettes Alcohol intake: current Drinks per week: 2 Substance use: former Substance use type: marijuana Last use: 10 YEARS AGO Gender identity (if verbalized by the patient): Female Spiritual care concerns: No Comments At the time of my signature, I reviewed and agree with the nursing past medical, surgical, social, and family history. There is no relevant family history pertinent to the patient complaint. Exam Const: General: cooperative, healthy appearing, comfortable, no acute distress, well developed, alert and well nourished Nutritional Appearance: well nourished Orientation/consciousness: patient oriented x3 Limitations: no limitations HENMT: Head: normal to inspection Ears: hearing grossly normal bilaterally, external ears normal, EAC's normal and TM abnormal bulging on the left and erythematous on the left Face/Nose/Sinus: Normal external nose present, Normal nares present, Normal nasal mucous membranes and turbinates present and normal facial exam Face and sinus: normal facial exam Mouth: Yes Norm
== END 2022-12-14 09:56 | disposition home or self-care (01) ==
PROVIDERS: Emergency Provider Nurse Practitioner; PCP Physician Assistant
DX: H66.92 Otitis media, unspecified, left ear (principal); F17.210 Nicotine dependence, cigarettes, uncomplicated
CPT/HCPCS: 99213; G0463

== ENCOUNTER 2023-03-19 13:03 | Outpatient (CLI) | payer OTHER, SELFPAY ==
--- NOTE | ~2023-03-19 | US_ITS ---
EXAMINATION: US breast RT limited HISTORY: Palpable lumps at the 6:00 and 9:00 locations of the right breast TECHNIQUE: Limited right breast ultrasound is performed. COMPARISON: 07/08/2022 FINDINGS: There are cysts measuring 1.6 cm and 0.7 cm at the 9:00 location, 2 cm from the nipple. The re is a 1.4 cm cyst at the 6:00 location, 1 cm from the nipple. No suspicious cystic or solid mass is identified. IMPRESSION: Right breast cysts corresponding to the areas of palpable concern. No suspicious findings. BI-RADS Category 2: Benign finding(s). Reviewed, dictated and finalized at location A. IMPRESSION: Right breast cysts corresponding to the areas of palpable concern. No suspiciou s findings. BI-RADS Category 2: Benign finding(s).
== END 2023-03-19 13:04 | disposition home or self-care (01) ==
LOC: ANHIMG 13:06
PROVIDERS: PCP Physician Assistant
DX: N63.0 Unspecified lump in unspecified breast (principal)
CPT/HCPCS: 76642

== ENCOUNTER 2025-01-28 14:59 | Outpatient (RCR) | payer SELFPAY | END 2025-04-28 23:59 | disposition home or self-care (01) | LOC: ANHAUDASC 14:59 | PROVIDERS: PCP Physician Assistant; Visit Provider Physician Assistant | DX: Z46.1 Encounter for fitting and adjustment of hearing aid (principal) | CPT/HCPCS: V5014 ==

== ENCOUNTER 2025-07-14 19:15 | Emergency (ER) | payer OTHER, SELFPAY ==
[2025-07-14 19:25] VITALS: BP 126/80; PULSE 86; RESP 16; TEMP 36.9; O2SAT 100
--- NOTE | 2025-07-14 20:30 | ED_ITS ---
HPI - Wound/Laceration General Chief Complaint: Wound/Laceration Stated Complaint: Right Hand Laceration Time Seen by Provider: 07/14/25 19:15 Source: patient Mode of arrival: ambulatory Limitations: no limitations History of Present Illness HPI narrative: Patient is a 34-year-old female who presents with right hand laceration. States at noon she was using a razor blade open a box and cut the side of her thumb. Bleeding controlled. Not on blood thinners. Last Tdap 05/24/18 Related Data Home Medications ?Medication ?Instructions ?Recorded ?Confirmed ?Last Taken ?Type levonorgestrel (Mirena) 1 device intrauterine ONCE 0 01/14/21 05/06/24 Unknown History brexpiprazole 0.5 mg tablet mg 07/14/25 Unknown Histo ry (Rexulti) dextroamphetamine-amphetamine ER PO 07/14/25 Unknown History 30 mg 24hr capsule,extend release escitalopram oxalate 20 mg tablet mg 07/14/25 Unknown History Allergies Allergy/AdvReac Type Severity Reaction Status Date / Time fluticasone Allergy Unknown RASH Verified 07/14/25 20:12 bee venom protein (honey Allergy Anaphylactic Verified 07/14/25 20:12 bee) (bees) Shock topiramate (From Topamax) Allergy Numbness Verified 07/14/25 20:12 Bumble Bee Allergy Mild SHOCK Uncoded 05/06/24 11:34 Review of Systems 2 Review of Systems: All systems reviewed & are unremarkable except as noted in HPI and below Constitutional: Constitutional: Denies body ache(s), Denies chills, Denies fatigue, Denies fever(s), Denies headache(s), Denies malaise and Denies weakness Eyes: Eyes: Denies blurry vision, Denies irritation and Denies loss of vision ENT: Denies otalgia, Denies headache(s), Denies nasal discharge, Denies sinus pain and Denies sore throat Cardiovascular: Cardiovascular: Denies chest pain, Denies irregular heart rhythm and Denies dyspnea Respiratory: Respiratory: Denies dyspnea Gastrointestinal: Gastrointestinal: Denies abdominal pain, Denies melena, Denies hematochezia, Denies diarrhea, Denies nausea and Denies vomiting Musculoskeletal: Musculoskeletal: Denies back pain, Denies myalgias and Denies arthralgias Integumentary/Breasts: Skin/Breast: Denies pruritus, Denies rash and Reports wounds Neurologic: Denies headache(s), Denies loss of vision and Denies weakness Psychiatric: Psychiatric: Reports no additional psychiatric complaints Endocrine: Endocrine: Denies fatigue PMFSH Past Medical History Medical History Hearing aid worn Tobacco abuse Anxiety Surgical History Surgical History History of tympanoplasty Social History Social History Smoking packs per day: 0.5 Smoking cigarettes per day: 10.0 Years smoked: 13 Smoking pack-years: 6.50 Smoking status: Current some day smoker Tobacco type: cigarettes Alcohol intake: current Drinks per week: 2 Substance use: former Substance use type: marijuana Last use: 10 YEARS AGO Lack of Transportation: No Lack of Food: Never True Current Housing: I Have Housing Concerned About Future Housing: No Difficulty Paying Gas/Electric Bills: No Difficulty Paying for Meds: No Currently Unemployed: No Education: Bachelor's Degree Difficulty w/ Childcare or Family Care: No Gender identity (if verbalized by the patient): Female Spiritual care concerns: No Comments At time of signature, agree with nursing past medical, surgical, social and family history. There is no relevant family history pertinent to the presenting complaint. Exam 2 Const: General: cooperative, healthy appearing, comfortable, no acute distress and well nourished Nutritional Appearance: well nourished O rientation/consciousness: patient oriented x3 Limitations: no limitations HENMT: Head: normal to inspection, normocephalic and atraumatic Ears: h earing grossly normal bilaterally and external ears normal Face/Nose/Sinus: N ormal external nose present, normal facial exam and face symmetric Face and sinus: normal facial exam and face symmetric Mouth: Yes lip normal Eyes: General: appearance normal, both eyes and all related structures A lignment and Position: alignment normal and position normal Periorbital: p eriorbital findings normal Eyelids: eyelids normal Pupils: Equal, round and reactive pupils present EOM: EOMs intact bilaterally Neck: Neck: normal visual inspection, full ROM and supple Chest: Chest palpation & inspection: normal inspection of the chest Resp: Effort & Inspection: normal respiratory effort and able to speak in complete sentences Auscultation: clear to auscultation bilaterally Cardio: Rate: regular rate Rhythm: regular rhythm Heart sounds: S1 normal heart sound present and S2 normal heart sound present GI: Inspection: normal to inspection Skin: General skin exam: normal color and no rashes or lesions noted Neuro: General: patient oriented x3 and moves all extremities Cranial nerves: Yes Equal, round and reactive pupils present Speech: normal speech Gait exam (Neuro): Normal gait present Extrem: General: normal to inspection, full ROM and no edema Hand/finger images: 1. 1 cm superficial laceration. no active bleeding Psych: Appearance: grossly normal and well kempt Mental Status: mental status grossly normal Speech and movement: Normal speech and movement present Affect: normal affect Attitude: cooperative Thought process: Normal thought process present Course Course Emergency Course: Patient is aware of diagnosis, understands and agrees to treatment plan. Anticipatory guidance given. Patient agrees to follow-up as directed and is aware of reasons to seek care at the emergency department. Portions of this record may have been created with voice recognition software Level of Care: Express Care Visit Vital Signs Vital signs: Vital Signs Temperature 36.9 C 07/14/25 19:25 Pulse Rate 86 07/14/25 19:25 Respiratory Rate 16 07/14/25 19:25 Blood Pressure 126/80 07/14/25 19:25 Pulse Oximetry 100 07/14/25 19:25 Oxygen Delivery Room Air 07/14/25 19:25 Temperature 36.9 C 07/14/25 19:25 Pulse Rate 86 07/14/25 19:25 Respiratory Rate 16 07/14/25 19:25 Blood Pressure 126/80 07/14/25 19:25 Pulse Oximetry 100 07/14/25 19:25 Oxygen Delivery Room Air 07/14/25 19:25 Reviewed Procedures Laceration Laceration 1: Date: 07/14/25 Time: 20:35 Site: hand Side (If applicable): right Size (cm): 1 Description: linear Depth: simple, single layer Pre-repair: irrigated ====== Skin Level ====== Skin layer closed with: dermabond ====== Subcutaneous Layer ====== ====== Muscle Layer ====== ====== Tendon Layer ====== Dressing: Procedure explained to patient. Verbal consent obtained. Patient tolerated well. Wound is well approximated as it was superficial. MDM - Wound/Laceration MDM Narrative Medical decision making narrative: Superficial laceration glued. Tetanus shot is up-to-date Pt well hydrated appearing, in no respiratory distress, hemodynamically stable. Recommend supportive care. The patient is stable at time of discharge the clinical impression was discussed and the patient was given the opportunity to ask questions, which were addressed as completely as possible given the information available at present. Anticipatory guidance and return to care precautions were discussed and the importance of primary care follow-up was stressed and encouraged. The patient voiced understanding of the plan, indications to return, and the need for follow-up. Exam findings show no acute concerns or changes Patient is appropriate for outpatient treatment and follow-up. Differential Diagnosis Differential diagnosis: Likely laceration Medical Records Attestation: I reviewed the patient's medical records. Discharge Plan Discharge Clinical Impression: Laceration Patient Disposition: Home Condition: Stable Instructions: Finger Laceration (ED) Additional Instructions: Skin adhesive care: -adhesive works like a bandage; do not use antibiotic onitment as it can break down the adhesive -You can shower while the adhesive is on your skin, but do not take a bath or soak or scrub the area for 7-10 days. Dry your skin by patting it gently with a towel. -The adhesive will peel off on its own; usually by 5-10days. If after 10 days, you still have adhesive on you, you can use antibiotic ointment or petroleum jelly to get it off. After you heal, you should protect the scar from the sun. Use sunscreen on the area or wear clothes or a hat that covers the scar. Follow up with your PCP is needed Patient Language: Nepali Prescriptions: No Action Mirena 20 mcg/24 hours (6 yrs) 52 mg Intrauterine Device 1 device INTRAUTERINE ONCE dextroamphetamine-amphetamine 30 mg capsule,extended release 24hr PO escitalopram oxalate 20 mg tablet Rexulti 0.5 mg tablet Follow-up/Referrals: Jarvis,BERTA Galeano [Primary Care Provider, Family Practice] - 3 Days Time of Disposition: 20:40
== END 2025-07-14 20:47 | disposition home or self-care (01) ==
PROVIDERS: Emergency Provider Nurse Practitioner Family; PCP Physician Assistant
DX: S61.011A Laceration without foreign body of right thumb without damage to nail, initial encounter (principal); W26.8XXA Contact with other sharp object(s), not elsewhere classified, initial encounter; F17.210 Nicotine dependence, cigarettes, uncomplicated; F41.9 Anxiety disorder, unspecified
CPT/HCPCS: 12001; 99212; G0463